=== PATIENT | female | born 1990 | race American Indian/Alaskan Native ===

== ENCOUNTER 2021-04-15 05:55 | Emergency (ER) | payer MEDICAID ==
[2021-04-15] MEDS ORDERED: TETANUS,DIPH,PERTUSS(ACELL) VACCINE 0.5 ML SYRINGE IM ONE (06:02)
--- NOTE | 2021-04-15 06:02 | Emergency Department Report ---
ED Laceration HPI - HPI Chief Complaint: Wound/Laceration Stated Complaint: LACERATION Time Seen by Provider: 04/15/21 06:01 Other History: Patient presents with a laceration of the top of the left hand. She was cutting something when she cut her left hand. She is right-hand dominant. This happened approximately 1. Patient does not know when her last tetanus shot was. It may have been more than 10 years. She is uncertain. There was no other injury. She told the nursing staff that this was done with glass. She told me that she was cutting something and cut herself. ED Review of Systems ROS: Stated complaint: LACERATION Other details as noted in HPI Comment: All other systems reviewed and negative Constitutional: denies: fever Eyes: denies: eye pain ENT: denies: throat pain Respiratory: denies: cough Cardiovascular: denies: dyspnea on exertion Gastrointestinal: denies: abdominal pain Genitourinary: denies: dysuria Musculoskeletal: denies: back pain Skin: as per HPI Hematological/Lymphatic: denies: easy bruising ED Past Medical Hx - Past Medical History Previous Medical History?: No - Surgical History Past Surgical History?: No - Family History Family history: no significant Laceration Physical Exam - Exam General: Vital signs noted. No distress. Alert and acting appropriately. Well-developed, well-nourished female in no acute distress. She is appropriate and cooperative. ED Course - Reevaluation(s) Reevaluation #1: 04/15/21 06:02 Xr ordered. Reevaluation #2: 04/15/21 06:28 Patient refused tetanus booster. X-ray is pending. Reevaluation #3: 04/15/21 08:34 Radiographs were noted. Wound was repaired. Patient was discharged. - Laceration /Wound Repair Left Hand Wound Location: upper extremity Wound's Depth, Shape: into muscle, irregular Wound Explored: clean Irrigated w/ Saline (ccs): 250 Betadine Prep?: Yes Anesthesia: 1% Lidocaine Wound Repaired With: sutures Suture Size/Type: 5:0, nylon Number of Sutures: 5 Layer Closure?: No Sterile Dressing Applied?: Yes Hand Wound Location: upper extremity Wound's Depth, Shape: superficial Wound Explored: clean Irrigated w/ Saline (ccs): 200 Betadine Prep?: Yes Anesthesia: 1% Lidocaine Wound Repaired With: sutures Suture Size/Type: 5:0, nylon Number of Sutures: 2 Layer Closure?: No Sterile Dressing Applied?: Yes ED Medical Decision Making - Radiology Data Radiology results: report reviewed - Medical Decision Making Patient presents with a laceration to the dorsum of the left hand. There was no appreciable foreign body noted. There is no obvious tendon involvement. Patient underwent wound care. She was subsequently discharged. I have a low suspicion that this would develop any kind of infection and I do not believe empiric antibiotic therapy is indicated. Immunizations were updated. Critical Care Time: No Critical care attestation.: If time is entered above; I have spent that time in minutes in the direct care of this critically ill patient, excluding procedure time. ED Disposition Clinical Impression: Laceration of left hand Qualifiers: Encounter type: initial encounter Foreign body presence: without foreign body Qualified Code(s): S61.412A - Laceration without foreign body of left hand, initial encounter Disposition: HOME / SELF CARE / HOMELESS Is pt being admited?: No Condition: Stable Instructions: Laceration Care, Adult, Sutures, Jacob, or Adhesive Wound Closure, [id number] Additional Instructions: Keep the wound clean. Return for problems. Wash with warm soapy water. Follow-up with your regular doctor for further wound care and management. Return for any problems or concerns. Have the stitches removed in 7 to 10 days. Referrals: SYLVIA GARAY MD [Staff Physician] - 3-5 Days
--- NOTE | 2021-04-15 07:46 | XRay Report ---
LEFT HAND 3 VIEWS INDICATION: LACERATION. COMPARISON: None. IMPRESSION: No acute osseous abnormality or joint pathology is detected. Subtle soft tissue promine nce is suggested on the dorsum of the hand which may represent the laceration. There may be a bandage present. No obvious radiopaque foreign body. Signer Name: Liang Hammond Jr, MD Signed: 04/15/2021 7:42 AM Workstation Name: [id number]
[2021-04-15 08:52] VITALS: BP 114/59
== END 2021-04-15 08:53 | disposition home or self-care (01) ==
LOC: ED 05:55
DX: S61.412A Laceration without foreign body of left hand, initial encounter (principal); W45.8XXA Other foreign body or object entering through skin, initial encounter; Y93.89 Activity, other specified; Y92.89 Other specified places as the place of occurrence of the external cause; Y99.8 Other external cause status
CPT/HCPCS: 90715; 99283